=== PATIENT | male | born 1950 | race Asian ===

== ENCOUNTER 2018-01-13 09:46 | Emergency (ER) | payer OTHER ==
[~2018-01-13] VITALS: Ht 162.6 cm; Wt 63.5 kg
[2018-01-13 09:52] VITALS: BP 177/86
--- NOTE | 2018-01-13 10:08 | ED GENERAL ADULT ---
History of Present Illness General Chief Complaint: General Adult Stated Complaint: HURT AT WORK/CRUSHING INJURY UPPER RT SIDE Source: patient Exam Limitations: no limitations Vital Signs & Intake/Output Vital Signs & Intake/Output Vital Signs Date Time Temp Pulse Resp B/P B/P Pulse O2 O2 Flow FiO2 Mean Ox Delivery Rate 01/13 0952 97.0 74 20 177/86 98 Room Air Allergies Coded Allergies: No Known Allergies (01/13/18) Reconcile Medications No Known Home Medications Triage Note: PT TO ED S/P BEING CRUSHED BY A MACHINE AT WORK. PT NOTED WITH ABRASION AND ? PUNCTURE WOUND TO RIGHT UPPER CHEST AND LAC WITH ? PUNCTURE WOUND TO RIGHT UPPER BACK. LARGE RIP IN BACK OF PT'S SHIRT. UNKNOWN LAST TETANUS. DENIED ANY LOC. STATES HE WAS "BREATHING SHORT" WHILE MACHINE WAS CRUSHING HIM. RA SATS 98%. APPEARS IN NO RESP DISTRESS. TAKEN TO ROOM 10 FOR FURTHER EVAL. Triage Nurses Notes Reviewed? yes HPI: Patient is a 67-year-old male whose only stated past medical history is asthma, who presents today after a machine he uses at work caught him and caused injury to his chest and shoulder region. He states that this machine makes "ribbon balls" Christmastime, and has multiple fast-moving mechanical parts. He states that he must have gotten to close this morning, and one of the parts caught his arm and shirtsleeve, and pulled him in, causing a crush mechanism to his right chest, clavicle, and scapula. 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 He has multiple abrasions and superficial lacerations over his anterior and posterior thorax area and he reports that he had a tetanus update 2 years ago. Past History Travel History Traveled to [place] past 21 day No Medical History Any Pertinent Medical History? none Respiratory: asthma Surgical History Surgical History: non-contributory Psychosocial History What is your primary language Malagasy Tobacco Use: Never used ETOH Use: denies use Illicit Drug Use: denies illicit drug use Family History Hx Contributory? Yes Review of Systems Review of Systems Constitutional: Reports: see HPI. EENTM: Reports: no symptoms. Respiratory: Denies: cough, hemoptysis, orthopnea, short of breath. Cardiovascular: Reports: see HPI, chest pain. GI: Reports: no symptoms. Genitourinary: Reports: no symptoms. Musculoskeletal: Reports: back pain, muscle pain. Skin: Reports: no symptoms. Neurological/Psychological: Reports: no symptoms. Hematologic/Endocrine: Reports: no symptoms. All Other Systems: Reviewed and Negative Physical Exam Physical Exam General Appearance: well developed/nourished, no apparent distress, alert, awake Comments: General: The patient is grossly stable from a hemodynamic standpoint, in no acute distress. HEENT: Inspection of the head reveals a normocephalic cranium with no signs of trauma. No blood in the bilateral external auditory canals. Ophtho: Extraocular muscles are intact and pupils are equal and reactive to light laterally with no afferent pupillary defect. The sclera are noninjected, and there is no obvious discharge. There is no bony pain or crepitus about the orbit. Neck: The trachea is midline, there is no obvious asymmetry or mass over the thyroid, and there is no midline cervical spine tenderness; c-spine exam is negative by NEXUS and [place] criteria. Respiratory: The lungs are clear and equal to auscultation bilaterally without wheezes, rales, or rhonchi. The patient exhibits no signs of labored breathing. Chest wall: There is a small but superficial puncture wound overlying the right anterior chest just inferior to the clavicle which does not violate the subdermal region. There is an area of swelling over the distal third of the clavicle with tenderness. There is a superficial abrasion/laceration with tissue loss but no gapping that would be amenable to primary closure over the right scapula, with mild pain on palpation of the scapula. There is no major instability or pain on palpation of the anterior chest; no crepitus or palpable rib fractures. When I compress the patient's chest anterior and posteriorly there is no significant pain with simulation of the crush. Cardiac: Regular rhythm and non-tachycardic without appreciable murmurs on auscultation. GI: Examination of the abdomen reveals no significant focal tenderness in any of the four quadrants. There is negative Atkins sign, negative Pineda-Dias sign, and no signs of peritonitis whatsoever on percussion or deep palpation. The skin is intact with no sign of trauma. : Deferred. Neuro: The patient is oriented to person, place, time, and situation, with no obvious focal motor deficits or significantly distracting injuries. There were no sensory deficits, and the patient exhibit purposeful movement of all 4 extremities. Cranial nerves II through XII are intact, and gait is normal. Behavioral: Cooperative and calm. Dermatologic: Dermatologic examination reveals no significant ecchymosis, lacerations, abrasions, or other sequelae of trauma. Core Measures ACS in differential dx? No CVA/TIA Diagnosis: No Sepsis Present: No Sepsis Focused Exam Completed? No Progress Differential Diagnoses I considered the following diagnoses in my evaluation of the patient: Rib fractures, scapular fracture, clavicle fracture, puncture wound, intrathoracic injury, pulmonary contusion, crush injury, pneumothorax Plan of Care: Orders Procedure Date/time Status XRY-SCAPULA, RIGHT 01/13 1005 Active XRY-RIBS UNILATERAL-RIGHT 01/13 1005 Active XRY-CLAVICLE, RIGHT 01/13 1005 Active Radiology Impression: no acute abnormality, no fracture, no dislocation, no foreign body seen Initial ED EKG: none Comments: Patient presented with trauma to the thorax with concern for fractures to the clavicle, ribs, and scapula on the right side. Tetanus up-to-date. Trauma screening examination otherwise negative. Stable at time of discharge. Departure Departure Time of Disposition: 1116 Disposition: HOME OR SELF CARE Condition: Stable Clinical Impression Primary Impression: Chest wall injury Qualifiers: Encounter type: initial encounter Qualified Code: S29.9XXA - Unspecified injury of thorax, initial encounter Referrals: [facility] Additional Instructions: Your x-rays were negative today. Please follow-up with a primary doctor by calling this number for an appointment. He should also follow up with any occupational health resources provided to you by your job. Departure Forms: Customer Survey General Discharge Information Prescriptions: Current Visit Scripts No Known Home Medications Critical Care Note Critical Care Note Critical Care Time: non-applicable
--- NOTE | 2018-01-13 10:59 | RADIOLOGY REPORT ---
EXAMINATION: CR RIGHT CLAVICLE. CR RIGHT RIBS. CR RIGHT SCAPULA. CLINICAL INFORMATION: Crash injury. Evaluate for clavicle fracture, rib fracture, and scapular fracture. COMPARISON: None TECHNIQUE: 2 views of the right clavicle. 2 views of the right scapula. Frontal view of the chest and 3 views of the right ribs. FINDINGS: Right clavicle: No acute fracture or dislocation is seen. The acromioclavicular joint remains intact without abnormal separation noted. Coracoclavicular distance is normal. Included bony structures in the right upper chest are unremarkable. Right scapula: No acute fracture or dislocation is seen. The glenohumeral joint is intact. No significant degenerative changes are seen. Right ribs: The cardiomediastinal silhouette is within normal limits in size. Mild ectasia of the ascending and descending aorta is seen. Lungs bilaterally are symmetrically expanded and demonstrate low lung volumes with crowding of bronchovascular lung markings in the lung bases bilaterally, left greater than right. No focal consolidation, effusion or pneumothorax is seen. There is a mild convex right upper thoracic scoliosis. The right ribs are intact and unremarkable. IMPRESSION: No evidence of acute fracture of the right clavicle, right scapula, right ribs.
== END 2018-01-13 11:26 ==
LOC: ERH 09:46
DX: S29.9XXA Unspecified injury of thorax, initial encounter (principal); S49.91XA Unspecified injury of right shoulder and upper arm, initial encounter; W31.9XXA Contact with unspecified machinery, initial encounter
CPT/HCPCS: 71100-RT; 73000-RT; 73010-RT